=== PATIENT | male | born 1940 | race Caucasian/White ===

== ENCOUNTER 2017-12-02 17:41 | Emergency (ER) | payer OTHER ==
[~2017-12-02] VITALS: Ht 170.2 cm; Wt 66.0 kg
[~2017-12-02 17:41] MED LIST: SYNT25TA PO; TAMS0.4C67 PO
[2017-12-02 17:44] VITALS: BP 195/91; PULSE 102; RESP 16; TEMP 98.8; O2SAT 96
[2017-12-02] MEDS ORDERED: TAMS0.4C4 (17:49)
[2017-12-02] MEDS ORDERED: SULFAMETHOXAZOLE-TRIMETHOPRIM DS 800-160 MG TAB PO ONE (18:00)
[2017-12-02] MEDS ORDERED: CEPHALEXIN MONOHYDRATE 500 MG CAP PO ONE (18:00)
[2017-12-02] MEDS ORDERED: BACT800T5 PO (18:03)
[2017-12-02] MEDS ORDERED: CEPH-460 PO (18:03)
--- NOTE | 2017-12-02 18:04 | PD ---
HPI Chief Complaint: Skin Problem Time Seen by Provider: 17:56 Travel History International Travel<30 days: No Contact w/Intl Traveler<30days: No Traveled to known affect area: No History of Present Illness HPI 77-year-old male presents to the emergency department for evaluation of possible infection to his left dorsal hand. He states he was working out in the yard yesterday and noticed some redness last night. Patient denies any fevers or chills. He has history of prostate problems and takes to prostate medications. He denies any allergies. He denies any loss of range of motion. No exacerbating or alleviating factors. Moderate severity. Patient states his tetanus immunization is up-to-date. PFSH Past Medical History Diminished Hearing: No Genitourinary: Yes (BPH) Thyroid Disease: Yes (HYPOTHYROIDISM) Past Surgical History Abdominal Surgery: Yes (GATRIC ULCER 1994) Social History Alcohol Use: No Tobacco Use: No (QUIT 2007) Substance Use: No Allergies-Medications (Allergen,Severity, Reaction): Coded Allergies: No Known Allergies (Unverified Adverse Reaction, Unknown, 12/02/17) Reported Meds & Prescriptions Reported Meds & Active Scripts Active Reported Tamsulosin (Tamsulosin HCl) 0.4 Mg Cap 0.4 Mg HS Review of Systems Except as stated in HPI: all other systems reviewed are Neg Physical Exam Narrative GENERAL: Well-nourished, well-developed elderly male patient, afebrile. SKIN: Focused skin assessment warm/dry. Patient has erythema to the dorsal aspect of the left fifth finger proximal to the PIP joint. He also erythema to the left lateral dorsal hand. No obvious abscess or drainage. No lymphangitis. HEAD: Normocephalic. Atraumatic. EYES: No scleral icterus. No injection or drainage. NECK: Supple, trachea midline. No JVD or lymphadenopathy. CARDIOVASCULAR: Regular rate and rhythm without murmurs, gallops, or rubs. RESPIRATORY: Breath sounds equal bilaterally. No accessory muscle use. Lungs sounds are clear to auscultation. MUSCULOSKELETAL: No cyanosis, or edema. BACK: Nontender without obvious deformity. No CVA tenderness. Data Data Last Documented VS Vital Signs Date Time Temp Pulse Resp B/P (MAP) Pulse Ox O2 Delivery O2 Flow Rate FiO2 12/02/17 17:44 98.8 102 16 195/91 (125) 96 Orders Orders Sulfamet-Trimeth Ds 800-160 Mg (Bactrim (12/02/17 18:00) Cephalexin (Keflex) (12/02/17 18:00) [facility] Medical Decision Making Medical Screen Exam Complete: Yes Emergency Medical Condition: Yes Medical Record Reviewed: Yes Differential Diagnosis Cellulitis versus abscess versus contact dermatitis Narrative Course 77-year-old male presents to the emergency department for evaluation of possible infection to his left dorsal hand. Physical exam is consistent with cellulitis. No evidence of abscess. Patient will be started on Bactrim and Keflex. He is given his first dose here. He is instructed on proper wound care. The patient was discharged in stable condition with instructions, including return instructions and follow up instructions. Diagnosis Primary Impression: Cellulitis of left hand Referrals: Primary Care Physician 2 days Patient Instructions: Cellulitis (ED), General Instructions Additional Instructions: Take antibiotics as directed until gone. Clean left hand with soap and water and apply [id number] antibiotic ointment twice daily. Follow-up with your primary care physician. Return to the emergency department for any acute worsening of symptoms. Med/Other Pt SpecificInfo: Prescription(s) given Scripts Cephalexin (Keflex) 500 Mg Capsule 500 MG PO Q6H for Infection for 10 Days, #40 CAP 0 Refills Prov: Thu Agarwal 12/02/17 Sulfamethoxazole-Trimethoprim (Bactrim DS) 800-160 Mg Tab 1 TAB PO BID for Infection, #20 TAB 0 Refills Prov: Thu Agarwal 12/02/17 Disposition: 01 DISCHARGE HOME Condition: Stable Thu Agarwal Dec 02, 2017 18:04
== END 2017-12-02 18:14 | disposition home or self-care (01) ==
LOC: PHEFT 17:41 → MERGE 17:41 → PHEFT 18:14
DX: L03.114 Cellulitis of left upper limb (principal); E03.9 Hypothyroidism, unspecified
CPT/HCPCS: 99283

== ENCOUNTER 2017-12-04 08:24 | Inpatient (IN) | payer OTHER, MEDICARE ==
[~2017-12-04] VITALS: Ht 170.2 cm; Wt 68.4 kg
[2017-12-04] VITALS (11 sets, daily range): BP systolic 140–182; BP diastolic 68–95; PULSE 79–106; RESP 16–20; TEMP 96.3–98.8; O2SAT 95–99
[~2017-12-04 08:24] MED LIST changes: +BACT800T5 PO; +CEPH-460 PO; -SYNT25TA PO; +TAMS0.4C4; -TAMS0.4C67 PO
--- NOTE | 2017-12-04 08:55 | PD ---
HPI Chief Complaint: Skin Problem Time Seen by Provider: 08:40 Travel History International Travel<30 days: No Contact w/Intl Traveler<30days: No Traveled to known affect area: No History of Present Illness HPI 77-year-old male here for evaluation of worsening left hand infection. The patient was seen in the emergency department on 12/02/17 and was felt to have cellulitis of the dorsum of his left hand. He was started on Bactrim and Keflex. He states that over the last 2 days the pain and swelling has been worsening. Pain is moderate, constant, worse with movement and palpation. He denies fevers or chills. He is right-hand dominant. PFSH Past Medical History Diminished Hearing: No Genitourinary: Yes (BPH) Thyroid Disease: Yes (HYPOTHYROIDISM) Past Surgical History Abdominal Surgery: Yes (GATRIC ULCER 1994) Social History Alcohol Use: No Tobacco Use: No (QUIT 2007) Substance Use: No Allergies-Medications (Allergen,Severity, Reaction): Coded Allergies: No Known Allergies (Verified Adverse Reaction, Unknown, 12/04/17) Reported Meds & Prescriptions Reported Meds & Active Scripts Active Keflex (Cephalexin) 500 Mg Capsule 500 Mg PO Q6H 10 Days Bactrim DS (Sulfamethoxazole-Trimethoprim) 800-160 Mg Tab 1 Tab PO BID Reported Tamsulosin (Tamsulosin HCl) 0.4 Mg Cap 0.4 Mg HS Review of Systems Except as stated in HPI: all other systems reviewed are Neg Physical Exam Narrative GENERAL: Well-developed, well-nourished, comfortable, no apparent distress. SKIN: Dorsum of left hand with moderate edema with warmth and erythema over the dorsum of the left fifth finger and medial and with open wounds to the dorsum of the left fifth finger that is spontaneously draining purulence and a pustule over the dorsum of the left hand. There is slight red streaking up the proximal /dorsal left hand/wrist. No Kanavel signs. HEAD: Atraumatic. Normocephalic. EYES: Pupils equal and round. No scleral icterus. No injection or drainage. ENT: Mucous membranes pink and moist. NECK: Trachea midline. No JVD. CARDIOVASCULAR: Regular rate and rhythm. Bilateral distal radial pulses are brisk and equal. RESPIRATORY: No accessory muscle use. Clear to auscultation. Breath sounds equal bilaterally. MUSCULOSKELETAL: Skin exam as above. No obvious deformities. No clubbing. No cyanosis. No edema. NEUROLOGICAL: Awake and alert. No obvious cranial nerve deficits. Motor grossly within normal limits. Normal speech. PSYCHIATRIC: Appropriate mood and affect; insight and judgment normal. Data Data Last Documented VS Vital Signs Date Time Temp Pulse Resp B/P (MAP) Pulse Ox O2 Delivery O2 Flow Rate FiO2 12/04/17 10:07 89 16 182/84 (116) 97 Room Air 12/04/17 09:35 97.6 Orders Orders Sepsis Workup Initiated (12/04/17 ) Complete Blood Count With Diff (12/04/17 08:51) Comprehensive Metabolic Panel (12/04/17 08:51) Prothrombin Time / Inr (Pt) (12/04/17 08:51) Act Partial Throm Time (Ptt) (12/04/17 08:51) Lactic Acid Sepsis Protocol (12/04/17 08:51) Blood Culture (12/04/17 08:51) Ecg Monitoring (12/04/17 08:51) Iv Access Insert/Monitor (12/04/17 08:51) Oximetry (12/04/17 08:51) Vancomycin Inj (Vancomycin Inj) (12/04/17 09:00) Us Arm Soft Tissue (12/04/17 ) Hand, Complete (Lgi2umc) (12/04/17 ) Wound Culture And Gram Stain (12/04/17 09:18) Admit To Inpatient (12/04/17 ) Vital Signs (Adult) MU.Q4H (12/04/17 11:01) Activity Oob With Assistance (12/04/17 11:01) Commutator Tester / Telemetry MU.Q8H (12/04/17 11:01) Sodium Chlor 0.45% 1000 Ml Inj (1/2 Ns 1 (12/04/17 11:01) Inpatient Certification (12/04/17 ) Labs Laboratory Tests Test 12/04/17 09:07 White Blood Count 13.8 TH/MM3 Red Blood Count 5.25 MIL/MM3 Hemoglobin 15.6 GM/DL Hematocrit 48.1 % Mean Corpuscular Volume 91.6 FL Mean Corpuscular Hemoglobin 29.8 PG Mean Corpuscular Hemoglobin Concent 32.5 % Red Cell Distribution Width 12.1 % Platelet Count 333 TH/MM3 Mean Platelet Volume 7.0 FL Neutrophils (%) (Auto) 78.6 % Lymphocytes (%) (Auto) 10.3 % Monocytes (%) (Auto) 9.2 % Eosinophils (%) (Auto) 1.2 % Basophils (%) (Auto) 0.7 % Neutrophils # (Auto) 10.8 TH/MM3 Lymphocytes # (Auto) 1.4 TH/MM3 Monocytes # (Auto) 1.3 TH/MM3 Eosinophils # (Auto) 0.2 TH/MM3 Basophils # (Auto) 0.1 TH/MM3 CBC Comment AUTO DIFF Differential Comment AUTO DIFF CONFIRMED Prothrombin Time 10.8 SEC Prothromb Time International Ratio 1.1 RATIO Activated Partial Thromboplast Time 27.3 SEC Blood Urea Nitrogen 22 MG/DL Creatinine 1.30 MG/DL Random Glucose 107 MG/DL Total Protein 7.9 GM/DL Albumin 3.7 GM/DL Calcium Level 8.4 MG/DL Alkaline Phosphatase 93 U/L Aspartate Amino Transf (AST/SGOT) 21 U/L Alanine Aminotransferase (ALT/SGPT) 17 U/L Total Bilirubin 1.9 MG/DL Sodium Level 136 MEQ/L Potassium Level 4.6 MEQ/L Chloride Level 103 MEQ/L Carbon Dioxide Level 25.0 MEQ/L Anion Gap 8 MEQ/L Estimat Glomerular Filtration Rate 54 ML/MIN Lactic Acid Level 1.6 mmol/L MDM Medical Decision Making Medical Screen Exam Complete: Yes Emergency Medical Condition: Yes Differential Diagnosis Cellulitis, extensor tenosynovitis, flexor tenosynovitis, abscess Narrative Course Patient has significant cellulitis to the dorsum of his left hand. There are no Kanavel signs. He has an open wound over the fifth PIP joint on the dorsal aspect of the hand that is spontaneously draining purulence. There is also a pustule over the mid/medial/dorsal left hand that expressed a moderate amount of purulence. Vital signs show heart rate 96, blood pressure 143/68, pulse ox 99% on room air , oral temp of 98.8F. CBC: WBC 13.8, hemoglobin 15.6, hematocrit 40.1, platelets 333, neutrophils 78.6 %. CMP is remarkable for BUN 22, creatinine 1.3, GFR 54, otherwise unremarkable. Lactic acid is 1.6. Left hand x-ray shows soft tissue swelling. Left hand ultrasound: CONCLUSION: Regional soft tissue swelling with no identifiable drainable fluid collection. Patient has been on oral antibiotics as an outpatient for 3 days, however his infection appears to be worsening. He does have 2 areas that are draining purulence on the dorsum of his left hand. I was able to express a moderate amount of purulence from both sites. Given failure of outpatient therapy, the patient will be admitted for IV antibiotics. He was given a dose of 1 g of IV vancomycin here in the emergency department. Patient was made aware of all findings and plan for admission. Case discussed with hospitalist Dr. Bravo who will admit the patient to his service. Diagnosis Primary Impression: Cellulitis of left hand Additional Impression: Abscess of left hand Admitting Information Admitting Physician Requests: Admit David Gracia MD Dec 04, 2017 08:55
[2017-12-04] MEDS ORDERED: VANCOMYCIN INJ 1,000 MG in SODIUM CHLOR 0.9% 250 ML INJ 250 ML IV ONE (09:00)
[2017-12-04 09:32] LABS: AUTOMATED NEUTROPHIL # 10.8 TH/MM3 (1.8-7.7); BASOPHIL # 0.1 TH/MM3 (0-0.2); BASOPHIL % 0.7 % (0.0-2.0); EOSINOPHIL # 0.2 TH/MM3 (0-0.4); EOSINOPHIL % 1.2 % (0.0-4.0); HEMATOCRIT 48.1 % (39.0-51.0); HEMOGLOBIN 15.6 GM/DL (13.0-17.0); LYMPH % 10.3 % (9.0-44.0); LYMPHOCYTE # 1.4 TH/MM3 (1.0-4.8); MEAN CELL VOLUME 91.6 FL (80.0-100.0); MEAN CORPUSCULAR HEMOGLOBIN 29.8 PG (27.0-34.0); MEAN CORPUSCULAR HGB CONC 32.5 % (32.0-36.0); MONO % 9.2 % (0.0-8.0); MONOCYTE # 1.3 TH/MM3 (0-0.9); NEUT % 78.6 % (16.0-70.0); PLATELET COUNT 333 TH/MM3 (150-450); RED BLOOD COUNT 5.25 MIL/MM3 (4.50-5.90); RED CELL DISTRIBUTION WIDTH 12.1 % (11.6-17.2); WHITE BLOOD COUNT 13.8 TH/MM3 (4.0-11.0)
[2017-12-04 09:46] LABS: CALCIUM 8.4 MG/DL (8.5-10.1)
[2017-12-04 09:47] LABS: ALBUMIN 3.7 GM/DL (3.4-5.0); BLOOD UREA NITROGEN 22 MG/DL (7-18); GLUCOSE,RANDOM 107 MG/DL (74-106)
[2017-12-04 09:48] LABS: INTERNATIONAL NORMALIZED RATIO 1.1 RATIO; PROTHROMBIN TIME - PATIENT 10.8 SEC (9.8-11.6)
[2017-12-04 09:50] LABS: ALT (GPT) 17 U/L (12-78); AST (GOT) 21 U/L (15-37); GLOMERULAR FILTRATION RATE 54 ML/MIN (>89)
[2017-12-04 09:51] LABS: TOTAL BILIRUBIN ADULT 1.9 MG/DL (0.2-1.0); TOTAL PROTEIN 7.9 GM/DL (6.4-8.2)
[2017-12-04 09:53] LABS: ALKALINE PHOSPHATASE 93 U/L (45-117)
--- NOTE | 2017-12-04 09:57 | RADRPT ---
EXAM DATE/TIME: 12/04/2017 09:02 [facility] COMPARISON: No previous studies available for comparison. INDICATIONS : Left hand swelling with blisters to the fifth metacarpel MEDICAL HISTORY : None. SURGICAL HISTORY : None. ENCOUNTER: Initial ACUITY: 4 - 6 days PAIN SCORE: 9/10 LOCATION: Left hand FINDINGS: Soft tissue swelling lateral side of the hand without bony destruction or radiopaque foreign body. T here is no gas in the soft tissues. CONCLUSION: Soft tissue swelling, lateral side otherwise negative Aiden Obrien MD FACR on December 04, 2017 at 9:54 Board Certified Radiologist. This report was verified electronically.
[2017-12-04 09:58] LABS: CHLORIDE 103 MEQ/L (98-107); SODIUM (NA) 136 MEQ/L (136-145)
--- NOTE | 2017-12-04 10:51 | RADRPT ---
EXAM DATE/TIME: 12/04/2017 09:22 [facility] COMPARISON: No previous studies available for comparison. INDICATIONS : Left hand and finger swelling. MEDICAL HISTORY : Left hand and finger swelling. SURGICAL HISTORY : Hernia repair. ENCOUNTER: Initial ACUITY: 3 days PAIN SCORE: 10/10 LOCATION: Left hand. AREA EVALUATED: Anterior and posterior left hand. FINDINGS: MASSES: None. FLUID COLLECTIONS: None. OTHER: Regional soft tissue swelling. CONCLUSION: Regional soft tissue swelling with no identifiable drainable fluid collection. Hunter Boyd MD on December 04, 2017 at 10:48 Board Certified Radiologist. This report was verified electronically.
[2017-12-04] MEDS ORDERED: SODIUM CHLOR 0.45% 1000 ML INJ 1,000 ML IV SCH (11:01)
--- NOTE | 2017-12-04 13:28 | HHI.HP ---
[facility] Primary Care Physician Genia Zhang MD Admission Diagnosis left hand cellulitis, left hand abscess, failed outpatient therapy Diagnoses: Chief Complaint: Left hand pain Travel History International Travel<30 Days: No Contact w/Intl Traveler <30 Da: No Traveled to Known Affected Are: No History of Present Illness 77-year-old white male admitting admitted for intractable left hand cellulitis and possible abscess. Patient previously presented to the ER within the last 7 days due to left hand pain and swelling and redness. Was discharged with antibiotics but symptoms persisted and got worse. He came back to the emergency department. The ER physician discussed case with me, was able to express some purulent material out of his left hand over the dorsum aspect of his his left fifth digit as well as over the dorsal aspect of the 4th and 5th metatarsals. They performed US of this area including partially up his forearm due to erythema and saw no drainable abscess. Patient is not sure exactly how the erythema started originally. He does not remember scraping of puncturing his left arm. History reports having a past medical history where he had a left arm fracture and had surgical repair done in [place] 3-1/2 years ago. He reports being an active smoker up until a few years ago and stopped. Says he is quite active in his garden. Review of Systems Except as stated in HPI: all other systems reviewed are Neg Past Family Social History Allergies: Coded Allergies: No Known Allergies (Verified Adverse Reaction, Unknown, 12/04/17) Physical Exam Vital Signs Vital Signs Date Time Temp Pulse Resp B/P (MAP) Pulse Ox O2 Delivery O2 Flow Rate FiO2 12/04/17 11:57 80 16 140/77 (98) 96 12/04/17 11:10 79 16 173/90 (117) 96 Room Air 12/04/17 10:07 89 16 182/84 (116) 97 Room Air 12/04/17 09:40 96 Room Air 12/04/17 09:35 97.6 90 16 163/88 (113) 96 Room Air 12/04/17 08:32 98.8 96 17 143/68 (93) 99 Physical Exam VS: afebrile GENERAL: Elderly white male, lying in bed, no acute distress SKIN: Warm and dry. EYES:No scleral icterus. No injection or drainage. ENT: No nasal bleeding or discharge. Mucous membranes pink and moist. CARDIOVASCULAR: Regular rate and rhythm. no murmurs RESPIRATORY: No accessory muscle use. Clear to auscultation. Breath sounds equal bilaterally. GASTROINTESTINAL: Abdomen ND Extremities: No clubbing, cyanosis, or edema. MUSCULOSKELETAL: Patient has diffuse edema over the dorsal aspect of his metacarpal region with 2 areas of a ruptured head with dried exudate over his the dorsal aspect of his proximal phalynx and over dorsal aspect of his 5th metacarpal. His hand is edematous and cannot fully close the fist combination operator, he has no tenderness upon wrist flexion or extension nor does he have any pain upon complete finger flexion or extension of all 5 fingers. He does have a notable golf ball size tender fluctuant mass on the medial aspect of his elbow joint that has overlying erythema as well. He has scattered erythema throughout his forearm. Olecranon is nontender. NEUROLOGICAL: Awake and alert. No obvious cranial nerve deficits. No facial droop nor slurred speech noted. PSYCHIATRIC: Appropriate mood and affect; insight and judgment normal. Laboratory Laboratory Tests Test 12/04/17 09:07 White Blood Count 13.8 Red Blood Count 5.25 Hemoglobin 15.6 Hematocrit 48.1 Mean Corpuscular Volume 91.6 Mean Corpuscular Hemoglobin 29.8 Mean Corpuscular Hemoglobin Concent 32.5 Red Cell Distribution Width 12.1 Platelet Count 333 Mean Platelet Volume 7.0 Neutrophils (%) (Auto) 78.6 Lymphocytes (%) (Auto) 10.3 Monocytes (%) (Auto) 9.2 Eosinophils (%) (Auto) 1.2 Basophils (%) (Auto) 0.7 Neutrophils # (Auto) 10.8 Lymphocytes # (Auto) 1.4 Monocytes # (Auto) 1.3 Eosinophils # (Auto) 0.2 Basophils # (Auto) 0.1 CBC Comment AUTO DIFF Differential Comment AUTO DIFF CONFIRMED Prothrombin Time 10.8 Prothromb Time International Ratio 1.1 Activated Partial Thromboplast Time 27.3 Blood Urea Nitrogen 22 Creatinine 1.30 Random Glucose 107 Total Protein 7.9 Albumin 3.7 Calcium Level 8.4 Alkaline Phosphatase 93 Aspartate Amino Transf (AST/SGOT) 21 Alanine Aminotransferase (ALT/SGPT) 17 Total Bilirubin 1.9 Sodium Level 136 Potassium Level 4.6 Chloride Level 103 Carbon Dioxide Level 25.0 Anion Gap 8 Estimat Glomerular Filtration Rate 54 Lactic Acid Level 1.6 Date/Time Source Procedure Growth Status 12/04/17 09:07 Blood Peripheral Aerobic Blood Culture Pending Received 12/04/17 09:07 Blood Peripheral Anaerobic Blood Culture Pending Received 12/04/17 10:00 Wound Hand Gram Stain Pending Received 12/04/17 10:00 Wound Hand Wound Culture Pending Received Result Diagram: 12/04/17 0907 12/04/17906 Imaging Last Impressions Upper Extremity Ultrasound 12/04/17 0000 Signed Impressions: Service Date/Time: Monday, December 04, 2017 09:22 - CONCLUSION: Regional soft tissue swelling with no identifiable drainable fluid collection. Hunter Boyd MD Hand X-Ray 12/04/17 0000 Signed Impressions: Service Date/Time: Monday, December 04, 2017 09:02 - CONCLUSION: Soft tissue swelling, lateral side otherwise negative Aiden Obrien MD FACR Caprini VTE Risk Assessment Caprini VTE Risk Assessment: Mod/High Risk (score >= 2) Caprini Risk Assessment Model Point Value = 1 Point Value = 2 Point Value = 3 Point Value = 5 Age 41-60 Minor surgery BMI > 25 kg/m2 Swollen legs Varicose veins or History of unexplained or recurrent spontaneous Oral contraceptives or hormone replacement Sepsis (< 1 month) Serious lung disease, including pneumonia (< 1 month) Abnormal pulmonary function Acute myocardial infarction Congestive heart failure (< 1 month) History of inflammatory bowel disease Medical patient at bed rest Age 61-74 Arthroscopic surgery Major open surgery (> 45 min) Laparoscopic surgery (> 45 min) Malignancy Confined to bed (> 72 hours) Immobilizing plaster cast Central venous access Age >= 75 History of VTE Family history of VTE Factor V Leiden Prothrombin [id number] Lupus anticoagulant Anticardiolipin antibodies Elevated serum homocysteine Heparin-induced thrombocytopenia Other congenital or acquired thrombophilia Stroke (< 1 month) Elective arthroplasty Hip, pelvis, or leg fracture Acute spinal cord injury (< 1 month) Prophylaxis Regimen Total Risk Factor Score Risk Level Prophylaxis Regimen 0-1 Low Early ambulation 2 Moderate Order ONE of the following: *Sequential Compression Device (SCD) *Heparin 5000 units SQ BID 3-4 Higher Order ONE of the following medications: *Heparin 5000 units SQ TID *Enoxaparin/Lovenox 40 mg SQ daily (WT < 150 kg, CrCl > 30 mL/min) *Enoxaparin/Lovenox 30 mg SQ daily (WT < 150 kg, CrCl > 10-29 mL/min) *Enoxaparin/Lovenox 30 mg SQ BID (WT < 150 kg, CrCl > 30 mL/min) AND/OR *Sequential Compression Device (SCD) 5 or more Highest Order ONE of the following medications: *Heparin 5000 units SQ TID (Preferred with Epidurals) *Enoxaparin/Lovenox 40 mg SQ daily (WT < 150 kg, CrCl > 30 mL/min) *Enoxaparin/Lovenox 30 mg SQ daily (WT < 150 kg, CrCl > 10-29 mL/min) *Enoxaparin/Lovenox 30 mg SQ BID (WT < 150 kg, CrCl > 30 mL/min) AND *Sequential Compression Device (SCD) Assessment and Plan Assessment and Plan hand refractory cellulitis - failed outpt abx w/ bactrim and keflex, continue w/ vanc and levaquin possible left elbow abscess - performing another US of this region since the original US covered only the and and forearm. may need surgical consult. MANOHAR - mild IVFs bph - home flomax SCDs for now w/ possible surgical intervention warranted. Physician Certification 2 Midnight Certification Type: Admission for Inpatient Services Order for Inpatient Services The services are ordered in accordance with Medicare regulations or non- Medicare payer requirements, as applicable. In the case of services not specified as inpatient-only, they are appropriately provided as inpatient services in accordance with the 2-midnight benchmark. Estimated LOS (days): 3 3 days is the estimated time the patient will need to remain in the hospital, assuming treatment plan goals are met and no additional complications. Post-Hospital Plan: Not yet determined Miguel Bravo MD Dec 04, 2017 13:28
[2017-12-04] MEDS ORDERED: Vancomycin Consult Pharmacy 1 EA OTHER SCH (14:00)
[2017-12-04] MEDS: SODIUM CHLOR 0.9% 1000 ML INJ 1,000 ML IV SCH (14:49)
[2017-12-04] MEDS: LEVOFLOXACIN 750 MG PREMIX INJ 150 ML IV SCH (14:49)
--- NOTE | 2017-12-04 15:12 | RADRPT ---
EXAM DATE/TIME: 12/05/2017 14:12 [facility] Corrected on: December 07, 2017; Corrected Date [facility] COMPARISON: US ARM LEFT, December 04, 2017, 9:22. INDICATIONS : Palpable lump left inner upper arm. MEDICAL HISTORY : Left hand and finger swelling. SURGICAL HISTORY : Hernia repair. ENCOUNTER: Subsequent ACUITY: 3 days PAIN SCORE: 0/10 LOCATION: Left arm. AREA EVALUATED: Left upper arm, just proximal to elbow. FINDINGS: MASSES: 1.3 x 1.4 x 1.1 cm area in the medial aspect of the left upper arm just above the elbow. There are 3 discrete areas of diminished echogenicity which could represent cystic areas. No detectable vascular flow on Doppler interrogation, however FLUID COLLECTIONS: None. OTHER: Negative. CONCLUSION: 1. 1.4 cm nodular density in the medial aspect of the left upper arm just below the elbow. The lesion contains 3 small hypoechoic areas which could represent cysts. No detectable blood flow on Doppler i nterrogation. Findings are nonspecific but could represent a necrotic lymph node. 2. If clinically warranted, MRI of the left upper arm with without gadolinium could be performed for further characterization. Hunter Boyd MD on December 04, 2017 at 15:05 Board Certified Radiologist. This report was verified electronically.
--- NOTE | 2017-12-04 20:28 | RADRPT ---
EXAM DATE/TIME: 12/04/2017 19:21 [facility] Corrected on: December 07, 2017; Corrected Ordering MD [facility] COMPARISON: No previous studies available for comparison. INDICATIONS : Left arm swelling and reddening and painful. MEDICAL HISTORY : Left hand and finger swelling. SURGICAL HISTORY : orif left elbow ENCOUNTER: Initial ACUITY: 3 days PAIN SCORE: 10/10 LOCATION: Left upper extremity FINDINGS: Multiple view examination of the left elbow demonstrates a wire and pin fixation of the proximal ulna . Probable remote fracture at the medial epicondyle with some nonunion. No acute fracture identified. CONCLUSION: 1. Postoperative changes as above. Lacho Han MD on December 04, 2017 at 20:24 Board Certified Radiologist. This report was verified electronically.
[2017-12-04] MEDS ORDERED: TAMSULOSIN HCL 0.4 MG CAP PO SCH (21:00)
[2017-12-05] VITALS (8 sets, daily range): BP systolic 112–143; BP diastolic 56–96; PULSE 82–101; RESP 15–20; TEMP 98–99.2; O2SAT 94–99
[2017-12-05] MEDS: VANCOMYCIN 1,000 MG/NS 250 ML IV SCH ×4 (04:49→22:29)
[2017-12-05 06:55] LABS: CHLORIDE 104 MEQ/L (98-107); SODIUM (NA) 135 MEQ/L (136-145)
[2017-12-05 07:09] LABS: ALBUMIN 2.9 GM/DL (3.4-5.0); ALKALINE PHOSPHATASE 79 U/L (45-117); ALT (GPT) 14 U/L (12-78); AST (GOT) 14 U/L (15-37); BICARBONATE 25.2 MEQ/L (21.0-32.0); BLOOD UREA NITROGEN 18 MG/DL (7-18); CALCIUM 7.7 MG/DL (8.5-10.1); CREATININE 0.99 MG/DL (0.60-1.30); GLOMERULAR FILTRATION RATE 73 ML/MIN (>89); GLUCOSE,RANDOM 107 MG/DL (74-106); TOTAL BILIRUBIN ADULT 1.4 MG/DL (0.2-1.0); TOTAL PROTEIN 6.6 GM/DL (6.4-8.2)
[2017-12-05] MEDS ORDERED: ALPRAZolam 0.25 MG TAB PO ONE (09:15)
[2017-12-05] MEDS ORDERED: LORazepam 2 MG/ML VIAL IV PUSH ONE (09:15)
[2017-12-05 09:32] LABS: BASOPHIL % 0.3 % (0.0-2.0); EOSINOPHIL % 0.3 % (0.0-4.0); HEMATOCRIT 42.4 % (39.0-51.0); HEMOGLOBIN 14.5 GM/DL (13.0-17.0); LYMPH % 8.6 % (9.0-44.0); LYMPHOCYTE # 1.1 TH/MM3 (1.0-4.8); MEAN CELL VOLUME 90.8 FL (80.0-100.0); MEAN CORPUSCULAR HEMOGLOBIN 31.1 PG (27.0-34.0); MEAN CORPUSCULAR HGB CONC 34.2 % (32.0-36.0); MEAN PLATELET VOLUME 6.9 FL (7.0-11.0); MONO % 6.2 % (0.0-8.0); MONOCYTE # 0.8 TH/MM3 (0-0.9); NEUT % 84.6 % (16.0-70.0); PLATELET COUNT 332 TH/MM3 (150-450); RED BLOOD COUNT 4.67 MIL/MM3 (4.50-5.90); RED CELL DISTRIBUTION WIDTH 12.4 % (11.6-17.2); WHITE BLOOD COUNT 12.9 TH/MM3 (4.0-11.0)
--- NOTE | 2017-12-05 10:44 | HHI.PR ---
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 He could not get any portion of the imaging done no more than 10-15 minutes. Therefore scan was canceled. Patient also reports having the urgency to urinate and apparently had a Baez catheter placed. He doesn't his hand pain is much improved. Objective Vital Signs Date Time Temp Pulse Resp B/P (MAP) Pulse Ox O2 Delivery O2 Flow Rate FiO2 12/05/17 08:37 98.0 101 18 142/72 (95) 94 12/05/17 04:00 98.4 96 20 143/67 (92) 96 12/05/17 00:00 98.6 93 20 135/96 (109) 95 12/04/17 20:00 98.1 106 20 165/79 (107) 95 12/04/17 16:00 96.9 88 16 158/74 (102) 99 12/04/17 15:22 85 12/04/17 14:00 96.3 86 16 158/91 (113) 96 12/04/17 13:32 12/04/17 13:29 90 16 178/95 (122) 96 Room Air 12/04/17 11:57 80 16 140/77 (98) 96 12/04/17 11:10 79 16 173/90 (117) 96 Room Air I/O 12/04/17 12/04/17 12/04/17 12/05/17 12/05/17 12/05/17 07:00 15:00 23:00 07:00 15:00 23:00 Intake Total 498 ml 300 ml 60 ml Output Total 1200 ml Balance 498 ml 300 ml -1140 ml Intake Oral 300 ml 60 ml IV Total 498 ml Output Urine Total 1200 ml # Voids 2 # Bowel Movements 0 Result Diagram: 12/05/17 0900 12/05/17 0603 Objective Remarks Minimally improved edema in hand compared to yesterday, all other findings otherwise unchanged. : diffuse edema over the dorsal aspect of his metacarpal region with 2 areas of a ruptured head with dried exudate over his the dorsal aspect of his proximal phalynx and over dorsal aspect of his 5th metacarpal. His hand is edematous. golf ball size tender fluctuant mass on the medial aspect of his elbow joint that has overlying erythema as well. He has scattered erythema throughout his forearm. Lying in bed, no acute distress A/P Assessment and Plan hand refractory cellulitis - failed outpt abx w/ bactrim and keflex, continue w/ vanc and levaquin - possible left elbow abscess - Given minimal improvement consulting hand surgeon. We will reorder the MRI today with anxiolytics beforehand to cover the elbow, forearm, and hand. Of most concern to me is actually the elbow since the ultrasound is showing a mass whereas the hand is showing soft tissue swelling. MANOHAR -Nearly resolved bph - home flomax SCDs for now w/ possible surgical intervention warranted. Miguel Bravo MD Dec 05, 2017 10:44
[2017-12-05] MEDS ORDERED: GADODIAMIDE PF 287 MG/ML 5 ML VIAL (for RAD MRI) IV PUSH ONE (13:00)
--- NOTE | 2017-12-05 13:25 | RADRPT ---
EXAM DATE/TIME: 12/05/2017 10:55 [facility] COMPARISON: No previous studies available for comparison. INDICATIONS : Abscess. Top of left hand red and swollen. CONTRAST: 12 cc Omniscan (gadodiamide) IV MEDICAL HISTORY : None. SURGICAL HISTORY : Inguinal hernia repair. Left elbow. ENCOUNTER: Initial ACUITY: 3 day PAIN SCORE: 5/10 LOCATION: Left hand TECHNIQUE: Multiplanar, multisequence MRI examination was performed without contrast and after the intravenous a dministration of gadolinium. FINDINGS: BONE/CARTILAGE: Bone marrow signal is homogeneous. Articular cartilage signal is within normal limits. TENDONS: All of the visualized tendons are intact. MISCELLANEOUS: No evidence of joint effusion. There soft tissue swelling across the dorsum of the hand including a s mall open wound overlying the fifth metacarpal bone. I don't see any evidence of osteomyelitis or dano inable abscess POST-CONTRAST: There are no abnormal areas of enhancement on the post-contrast images. CONCLUSION: Impressive soft tissue edema across the dorsum of the wrist including a small open wound overlying th e fifth metacarpal bone. No soft tissue or drainable abscess is noted. Tone Ambrose MD on December 05, 2017 at 13:22 Board Certified Radiologist. This report was verified electronically.
--- NOTE | 2017-12-05 13:27 | RADRPT ---
EXAM DATE/TIME: 12/05/2017 10:55 [facility] COMPARISON: No previous studies available for comparison. INDICATIONS : Abscess. CONTRAST: 12 cc Omniscan (gadodiamide) IV MEDICAL HISTORY : None. SURGICAL HISTORY : Inguinal hernia repair. Left elbow. ENCOUNTER: Initial ACUITY: 3 day PAIN SCORE: 5/10 LOCATION: Left arm TECHNIQUE: Multiplanar multisequence MRI examination of the forearm was performed with and without contrast. FINDINGS: BONE/CARTILAGE: Bone marrow signal is homogeneous. Articular cartilage signal is within normal limits. MUSCLES/TENDONS: All of the visualized muscles and tendons are intact. MISCELLANEOUS: There's impressive soft tissue edema across the ulnar aspect of the forearm. It is confined to the garcia bcutaneous fat. No deep fluid collection or bony edema is identified to suggest deeper infection POST-CONTRAST: There are no abnormal areas of enhancement on the post-contrast images. CONCLUSION: Subcutaneous edema along the ulnar aspect of the forearm. No drainable fluid collection or abscess is identified. Tone Ambrose MD on December 05, 2017 at 13:24 Board Certified Radiologist. This report was verified electronically.
--- NOTE | 2017-12-05 13:30 | RADRPT ---
EXAM DATE/TIME: 12/05/2017 10:55 [facility] COMPARISON: No previous studies available for comparison. INDICATIONS : Abscess. CONTRAST: 12 cc Omniscan (gadodiamide) IV MEDICAL HISTORY : None. SURGICAL HISTORY : Inguinal hernia repair. Left elbow ENCOUNTER: Initial ACUITY: 3 day PAIN SCORE: 5/10 LOCATION: Left elbow TECHNIQUE: Multiplanar, multisequence MRI examination was performed without contrast and after the intravenous a dministration of gadolinium. FINDINGS: BONE/CARTILAGE: Bone marrow signal is homogeneous except for susceptibility artifact overlying the olecranon. Articul ar cartilage signal is within normal limits. TENDONS: All of the visualized tendons are intact. LIGAMENTS: The radial collateral and ulnar collateral ligament complexes are intact. MISCELLANEOUS: No evidence of joint effusion. Ulnar nerve is within normal limits. POST-CONTRAST: There significant edema along the ulnar aspect of the forearm. There is a collection of fluid underne ath the skin measuring 1.6 x 2.1 cm could be a small subcutaneous abscess. CONCLUSION: Significant edema across the elbow particularly medially with some fluid at the level of the jointlin e in the subcutaneous fat could be a small abscess(series 6 image 7 and series 7 image 16). Tone Ambrose MD on December 05, 2017 at 13:26 Board Certified Radiologist. This report was verified electronically.
[2017-12-05] MEDS ORDERED: LIDOCAINE HCL 1% 50 ML VIAL ONE (14:18)
[2017-12-05] MEDS ORDERED: IBUPROFEN 800 MG TAB PO PRN (15:00)
--- NOTE | 2017-12-05 16:23 | MB ---
cc: BETSY FINCH M.D., [facility] DATE OF CONSULTATION: 12/05/2017 REQUESTING PHYSICIAN: Dr. Miguel Bravo REASON FOR CONSULTATION: Abscesses of left hand failed outpatient therapy. HISTORY OF PRESENT ILLNESS The patient is set the patient is a 77-year-old male who noticed on Monday that he had some swelling and pain of his left hand. The patient was seen emergency room or by various emergency room was given antibiotics. The patient came back last evening complaining of continued pain in the emergency room. The record indicates that the ER physician was able to expressed some purulent material out of the hand at dorsal aspect but definitive incision and drainage was not performed. There was some red streaking up the patient's arm and some swelling of the renal aspect just proximal to his elbow. The patients condition has not improved, while on the IV antibiotics, although some swelling has diminished. Pap consultation is requested regarding evaluation and treatment of the abscesses PAST MEDICAL HISTORY: Negative. REVIEW OF SYSTEMS a review of systems is negative as noted above. ALLERGIES The patient has no known food or drug allergies. SOCIAL HISTORY The patient is living in [place]. PHYSICAL EXAMINATION: IN GENERAL: On examination the patient is lying comfortably in bed. VITAL SIGNS: Temperature is 98, pulse 101, respirations 18, blood pressure is 142/72 and pulse oximetry is 94 on room air. HEAD, EYES, EARS, NOSE, AND THROAT: His extraocular muscles are intact. His pupils are equal round and reactive to light. His mouth is clear. NECK: His neck is supple without masses. LUNGS: The lungs are clear. HEART: Heart is regular rate and rhythm. EXAMINATION Upper extremities reveals an abscess on dorsal aspect of his left hand which appears to be relatively superficial in a sense at the skin has thinned out. This abscess blister measures approximately 1.5 cm x 1 cm in greatest dimension. There is a second area of purulence on dorsal aspect of fifth finger in the midportion of the proximal phalanx. The abscesses again pushing through the skin and there is blistering with thinning over the skin, the patient is able to flex and extend the fifth finger. There is no deep fluctuance around either abscess. The redness does extend proximally the patient's white count on admission was 13.8 with absolute number of 10,800. White blood cells per ml. Today, his white count is 4.9 with 11,000 as an absolute number percent is also increased. His blood glucose was 107 this morning. IMPRESSION The patient has two abscesses of his left hand. PLAN Incision and drainage. The patient is made aware of the risks, complications of the procedure which will be performed at bedtime and he is agreeable to that. MD JANEL Beltrán/diamond /2:48 PM /3:43 PM [facility]
[2017-12-05] MEDS: LEVOFLOXACIN 750 MG PREMIX INJ 150 ML IV SCH (16:49)
[2017-12-05] MEDS: SODIUM CHLOR 0.9% 1000 ML INJ 1,000 ML IV SCH (16:49)
--- NOTE | 2017-12-05 16:59 | MB ---
cc: ELIZABETH CUELLAR DATE OF CONSULTATION: 12/05/2017 REASON FOR CONSULTATION: This is a pleasant 77-year-old male who was admitted with a left hand cellulitis and possible abscess. The patient underwent a procedure to drain the abscess, and then after this, woke up with urinary retention. Baez was placed for approximately 900 cc which was blood tinged urine, per report. The patient has a known history of BPH and currently takes Flomax and Proscar at home. He is unsure who his urologist is at this point in time. He notes prior to admission nocturia one to two times with a moderate stream. He denies any urinary tract infections or hematuria in the past. He does state this PSA was elevated but with the medication it had gone down to 3.78. ALLERGIES NO KNOWN DRUG ALLERGIES PAST MEDICAL HISTORY: Medical history is notable for BPH and hypothyroidism. PAST SURGICAL HISTORY: Abdominal surgery for gastric ulcer. SOCIAL HISTORY Denies smoking, quit 2007. Denies drinking or using drugs. FAMILY HISTORY No family history of prostate cancer is noted. MEDICATIONS: For medications please refer to the chart. REVIEW OF SYSTEMS Denies chest pain, shortness of breath, gait disturbances bleeding disorders. Notes nocturia x 1 to 2, moderate stream. Denies gross hematuria. Denies psychiatric problems. Denies hearing loss. Denies headaches. Denies eye pain The remaining review of systems reviewed and are negative. PHYSICAL EXAMINATION: VITAL SIGNS: Vitals today temperature is 98, heart rate 101, respiratory 18, blood pressure 142/72 96% on room air. IN GENERAL: He is well-developed, well-nourished 77-year-old male in no acute distress. HEAD, EYES, EARS, NOSE, AND THROAT: Normocephalic, atraumatic. Pupils equal round regular to light. Extraocular is intact. NECK: The neck is supple. HEART: The heart rate is regular rate and rhythm. LUNGS: Clear. ABDOMEN: Soft, nontender, distended. Baez is in place with some blood at the meatus. Testes are descended, nontender. Prostate 50 grams smooth on exam. No nodules are identified. EXTREMITIES: Show no cyanosis, swelling or edema. NEUROLOGIC: Cranial nerves II through XII intact PSYCHIATRIC: Generalized mood. LABORATORY FINDINGS: White count 12.9, hemoglobin 14.5, hematocrit 42.4, platelet count 332, sodium 135, potassium 3.9, chloride 104, CO2 25.2, BUN of 18, creatinine 0.9, glucose 107. ASSESSMENT: Assessment is a 77-year-old male with acute urinary retention post procedure after I&D of a hand abscess. RECOMMENDATIONS Maintain Baez catheter for now We will double Flomax to 0.8 mg p.o. q.h.s. Recommend follow-up with a void trial on Monday in the office. Thank you for the consult and allowing me to participate in the care of this patient. Elizabeth Mohan /3:47 PM /4:23 PM
--- NOTE | 2017-12-05 18:30 | PD.CONS ---
History of Present Illness Service Infectious disease Consult Requested By Dr Bravo Reason for Consult Left hand abscess/ cellulitis Primary Care Physician Genia Zhang MD Diagnoses: (1) Acute lymphangitis of left upper extremity (2) Abscess of left hand (3) Cellulitis of left hand History of Present Illness 77 / M who does work in his yard a lot - noticed redness and swelling of left hand and so came to ER on 12/02 - sent home on PO Cephalexin and Bactrim but when there was worsening symptoms with lesions going up his forearm he came back. One abscess has been drained and cultures are pending. He says he feels better . Review of Systems Constitutional: DENIES: Fever, Chills Endocrine: DENIES: Polyuria, Polyphagia Eyes: DENIES: Eye inflammation, Eye pain Ears, nose, mouth, throat: DENIES: Nasal discharge, Oral lesions Respiratory: DENIES: Snoring, Wheezing Cardiovascular: DENIES: Syncope, Dyspnea on Exertion, Lower Extremity Edema Gastrointestinal: DENIES: Bloody stools, Constipation, Diarrhea Genitourinary: DENIES: Urinary frequency, Urinary incontinence Musculoskeletal: DENIES: Muscle aches Integumentary: COMPLAINS OF: Abnormal pigmentation, DENIES: Nail changes Hematologic/lymphatic: DENIES: Lymphadenopathy Neurologic: DENIES: Headache, Localized weakness Psychiatric: DENIES: Confusion, Mood changes Past Family Social History Allergies: Coded Allergies: No Known Allergies (Verified Adverse Reaction, Unknown, 12/04/17) Past Medical History BPH Hypothyroidism Gastric ulcer Active Ordered Medications IV Vancomycin and Levofloxacin Family History Non contributory Social History Past h/o smoking] Retired No recent travel Physical Exam Vital Signs Vital Signs Date Time Temp Pulse Resp B/P (MAP) Pulse Ox O2 Delivery O2 Flow Rate FiO2 12/05/17 08:37 98.0 101 18 142/72 (95) 94 12/05/17 07:30 101 12/05/17 04:00 98.4 96 20 143/67 (92) 96 12/05/17 00:00 98.6 93 20 135/96 (109) 95 12/04/17 20:00 98.1 106 20 165/79 (107) 95 Physical Exam GENERAL: This is a elderly pleasant patient, in no apparent distress. SKIN:Abscess and cellulitis of left hand with some ? nodular lymphangitis on left fore arm HEAD: Atraumatic. Normocephalic. No temporal or scalp tenderness. EYES: Pupils equal round and reactive. Extraocular motions intact. No scleral icterus. No injection or drainage. ENT: Nose without bleeding, purulent drainage or septal hematoma. Throat without erythema, tonsillar hypertrophy or exudate. Uvula midline. Airway patent. NECK: Trachea midline. No JVD or lymphadenopathy. Supple, nontender, no meningeal signs. CARDIOVASCULAR: Regular rate and rhythm without murmurs, gallops, or rubs. RESPIRATORY: Clear to auscultation. Breath sounds equal bilaterally. No wheezes , rales, or rhonchi. GASTROINTESTINAL: Abdomen soft, non-tender, nondistended. No hepato-splenomegaly , or palpable masses. No guarding. MUSCULOSKELETAL: Extremities without clubbing, cyanosis, or edema. No joint tenderness, effusion, or edema noted. No calf tenderness. Negative Homans sign bilaterally. NEUROLOGICAL: Awake and alert. Cranial nerves II through XII intact. Motor and sensory grossly within normal limits. Five out of 5 muscle strength in all muscle groups. Normal speech. Laboratory Laboratory Tests Test 12/05/17 06:03 12/05/17 09:00 Blood Urea Nitrogen 18 Creatinine 0.99 Random Glucose 107 Total Protein 6.6 Albumin 2.9 Calcium Level 7.7 Alkaline Phosphatase 79 Aspartate Amino Transf (AST/SGOT) 14 Alanine Aminotransferase (ALT/SGPT) 14 Total Bilirubin 1.4 Sodium Level 135 Potassium Level 3.9 Chloride Level 104 Carbon Dioxide Level 25.2 Anion Gap 6 Estimat Glomerular Filtration Rate 73 White Blood Count 12.9 Red Blood Count 4.67 Hemoglobin 14.5 Hematocrit 42.4 Mean Corpuscular Volume 90.8 Mean Corpuscular Hemoglobin 31.1 Mean Corpuscular Hemoglobin Concent 34.2 Red Cell Distribution Width 12.4 Platelet Count 332 Mean Platelet Volume 6.9 Neutrophils (%) (Auto) 84.6 Lymphocytes (%) (Auto) 8.6 Monocytes (%) (Auto) 6.2 Eosinophils (%) (Auto) 0.3 Basophils (%) (Auto) 0.3 Neutrophils # (Auto) 11.0 Lymphocytes # (Auto) 1.1 Monocytes # (Auto) 0.8 Eosinophils # (Auto) 0.0 Basophils # (Auto) 0.0 CBC Comment DIFF FINAL Differential Comment Date/Time Source Procedure Growth Status 12/04/17 09:07 Blood Peripheral Aerobic Blood Culture - Preliminary NO GROWTH IN 1 DAY Resulted 12/04/17 09:07 Blood Peripheral Anaerobic Blood Culture - Preliminary NO GROWTH IN 1 DAY Resulted 12/05/17 14:40 Abscess Hand Gram Stain Pending Received 12/05/17 14:40 Abscess Hand Wound Culture Pending Received Result Diagram: 12/05/17 0900 12/05/17 0603 Assessment and Plan Problem List: (1) Abscess of left hand ICD Codes: L02.512 - Cutaneous abscess of left hand Status: Acute Plan: Follow cultures Patient with some nodular lymphangitis so will stop Levofloxacin Start Unasyn 3 g IV q6hrs Continue IV Vancomycin for now (2) Cellulitis of left hand ICD Codes: L03.114 - Cellulitis of left upper limb Status: Acute (3) Acute lymphangitis of left upper extremity ICD Codes: L03.124 - Acute lymphangitis of left upper limb Aniyah Thornton MD Dec 05, 2017 18:30
[2017-12-05] MEDS: AMPICILLIN-SULBACTAM INJ 3 GM in SODIUM CHLORIDE 0.9% INJ 100 ML IV SCH (20:55)
[2017-12-05] MEDS ORDERED: TAMSULOSIN HCL 0.4 MG CAP PO SCH (21:00)
--- NOTE | 2017-12-05 21:25 | MP ---
cc: BETSY FINCH MD DATE OF SURGERY 12/05/17 PREOPERATIVE DIAGNOSIS Abscess times two to the dorsal aspect of left hand and fifth finger. POSTOPERATIVE DIAGNOSIS Abscess times two to the dorsal aspect of left hand and fifth finger. PROCEDURE 1. Incision and drainage of abscess dorsal aspect ulnar side of left hand. 2. Incision and drainage of abscess dorsal aspect of left fifth finger over the proximal phalanx. 3. Excisional debridement of skin and subcutaneous tissue of the hand abscess. 4. Excisional debridement of skin of the finger abscess. ANESTHESIA Local SURGEON Dr. Betsy Finch MD INDICATIONS A 77-year-old male with two abscesses for drainage. FINDINGS At the completion of the procedure, each abscess was drained. The one on the dorsal aspect of his hand did go deep into the soft tissue. The one over the fifth finger was more superficial and did not penetrate into the deep tissues. At the completion of the procedure, both abscesses were adequately drained with no purulence and the effluent which was clear. Operative time was approximately 30 minutes. PROCEDURE The patient was in a supine position in his bed. His left hand was prepped with Betadine and draped in usual sterile fashion. Lidocaine 1% plain was injected as a field block and nerve block proximally at the area of the wrist of the ulnar nerve and then some additional blocking was done locally around the abscess. Once the anesthetic had taken effect, a sterile scissor was used to open up the hand abscess cavity which was then debrided of skin and subcutaneous tissue. It was washed clean and there was a small opening, approximately of 4 mm in diameter, which went deep. This was gently probed and flushed out and the loculations within it were drained. Once the effluent was clear, attention was turned to the fifth finger where the superficial skin was removed and scrubbed off. There was no deep abscess noted. Some manipulation was done in order to express anymore purulence which was none. Both areas were copiously irrigated with saline and dressed with povidone-iodine solution, non adherent dressing and Jaylen. The patient was then given back to the care of the staff on the floor. The large abscess of the dorsal aspect of his hand was cultured. The patient did tolerate the procedure well. MD JANEL Beltrán/ /2:52 PM /8:57 PM MTDD
[2017-12-05] MEDS: POVIDONE IODINE 10% SOLN 118 ML BOTTLE OTHER SCH (21:28)
[2017-12-05] MEDS: POVIDONE IODINE 10% OINT 30 GM TUBE TOPICAL SCH (22:27)
[2017-12-06] VITALS: BP 124/60; PULSE 80; RESP 20; TEMP 98.1; O2SAT 96
[2017-12-06] MEDS: AMPICILLIN-SULBACTAM INJ 3 GM in SODIUM CHLORIDE 0.9% INJ 100 ML IV SCH ×2 (02:25→08:16)
[2017-12-06 04:00] VITALS: BP 135/62; PULSE 78; RESP 20; TEMP 97.7; O2SAT 93
[2017-12-06 07:01] LABS: AUTOMATED NEUTROPHIL # 5.7 TH/MM3 (1.8-7.7); BASOPHIL % 0.4 % (0.0-2.0); EOSINOPHIL # 0.3 TH/MM3 (0-0.4); EOSINOPHIL % 3.1 % (0.0-4.0); HEMATOCRIT 41.3 % (39.0-51.0); HEMOGLOBIN 14.1 GM/DL (13.0-17.0); LYMPH % 14.7 % (9.0-44.0); LYMPHOCYTE # 1.2 TH/MM3 (1.0-4.8); MEAN CELL VOLUME 90.8 FL (80.0-100.0); MEAN CORPUSCULAR HGB CONC 34.1 % (32.0-36.0); MEAN PLATELET VOLUME 6.9 FL (7.0-11.0); MONO % 11.3 % (0.0-8.0); MONOCYTE # 0.9 TH/MM3 (0-0.9); NEUT % 70.5 % (16.0-70.0); PLATELET COUNT 329 TH/MM3 (150-450); RED BLOOD COUNT 4.54 MIL/MM3 (4.50-5.90); RED CELL DISTRIBUTION WIDTH 12.3 % (11.6-17.2); WHITE BLOOD COUNT 8.1 TH/MM3 (4.0-11.0)
[2017-12-06 07:50] VITALS: BP 123/58; PULSE 84; RESP 20; TEMP 97.1; O2SAT 94
[2017-12-06 08:20] VITALS: PULSE 87
[2017-12-06] MEDS: POVIDONE IODINE 10% SOLN 118 ML BOTTLE OTHER SCH (09:00)
--- NOTE | 2017-12-06 09:09 | HHI.PR ---
Subjective Patient symptoms today Pt seen and examined. Feels well. Urine clear. Objective Vital Signs Vital Signs Date Time Temp Pulse Resp B/P (MAP) Pulse Ox O2 Delivery O2 Flow Rate FiO2 12/06/17 04:00 97.7 78 20 135/62 (86) 93 12/06/17 00:00 98.1 80 20 124/60 (81) 96 12/05/17 20:07 82 12/05/17 20:00 99.2 86 20 126/58 (80) 95 12/05/17 18:38 98.2 95 15 112/56 (74) 99 12/05/17 15:00 99 Intake & Output 12/06/17 12/06/17 07:00 19:00 Intake Total 2686 ml Output Total 700 ml Balance 1986 ml Intake Oral 480 ml IV Total 2206 ml Output Urine Total 700 ml Result Diagram: 12/06/17 0615 12/05/17 0603 Objective Remarks Abd:soft,nt,nd Munoz with clear urine Medications and IVs Current Medications Medications (Trade) Dose Ordered Sig/Yoselin Route Start Time Stop Time Status Last Admin Sodium Chloride 1,000 ml @ 42 mls/hr [id number] IV 12/04/17 14:00 12/05/17 16:49 Pharmacy Profile Note 0 ml @ 0 mls/hr UNSCH OTHER 12/04/17 14:00 Vancomycin HCl 1000 mg/Sodium Chloride 250 ml @ 250 mls/hr Q18H IV 12/05/17 04:00 12/05/17 22:29 Miscellaneous Information SPECIFIC LAB TO BE NIKO... ONCE ONCE .XX 12/06/17 15:45 12/06/17 15:46 (Motrin) 800 mg Q8H PRN PO 12/05/17 15:00 12/05/17 16:50 (Betadine 10% Top Soln) 1 applic BID OTHER 12/05/17 21:00 12/05/17 21:28 (Betadine 10% Oint) 1 applic BID TOPICAL 12/05/17 21:00 12/05/17 22:27 (Flomax) 0.8 mg HS PO 12/05/17 21:00 12/05/17 20:57 Ampicillin Sodium/ Sulbactam Sodium 3 gm/Sodium Chloride 100 ml @ 200 mls/hr Q6H IV 12/05/17 20:00 12/06/17 08:16 Assessment and Plan Assessment and Plan 77 y.o male with AUR with possible traumatic munoz Munoz to leg bag F/U on Monday in office fo void trial. Send pt home on Flomax 0.8 mg QHS please Be Brooks DO Dec 06, 2017 09:09
--- NOTE | 2017-12-06 09:10 | HHI.PR ---
Subjective Remarks Patient seen today in follow-up for left arm/hand cellulitis, lymphangitis. Patient has had a remarkable improvement of his condition. All erythema has almost completely resolved. Has significantly rescinded from the previously marked line. Patient states that he is feeling much better and would like to go home. Vital signs remained stable, patient remains afebrile Objective Vitals Vital Signs Date Time Temp Pulse Resp B/P (MAP) Pulse Ox O2 Delivery O2 Flow Rate FiO2 12/06/17 04:00 97.7 78 20 135/62 (86) 93 12/06/17 00:00 98.1 80 20 124/60 (81) 96 12/05/17 20:07 82 12/05/17 20:00 99.2 86 20 126/58 (80) 95 12/05/17 18:38 98.2 95 15 112/56 (74) 99 12/05/17 15:00 99 I/O 12/05/17 12/05/17 12/05/17 12/06/17 12/06/17 12/06/17 07:00 15:00 23:00 07:00 15:00 23:00 Intake Total 60 ml 1050 ml 2586 ml Output Total 1200 ml 700 ml Balance -1140 ml 1050 ml 1886 ml Intake Oral 60 ml 800 ml 480 ml IV Total 250 ml 2106 ml Output Urine Total 1200 ml 700 ml # Bowel Movements 0 Result Diagram: 12/06/17 0615 12/05/17 0603 Objective Remarks GENERAL: Well-developed, well-nourished, in no acute distress. alert and orientated HEENT: Head is normocephalic without any lesions or masses noted. Facial features are symmetric. Eyes: Extraocular muscles are intact. Conjunctivae were clear. NECK: Supple without any masses. Trachea midline no deviation. No JVD, CARDIAC: Regular rhythm, regular rate. S1/S2 are heard. No murmurs gallops or rubs. LUNGS: Clear to auscultation bilaterally. No wheeze, rhonchi or rales. No use of accessory muscles on inspiration or expiration. ABDOMEN: Soft, nontender. Nondistended. Bowel sounds heard in all 4 quadrants. No organomegaly or masses. Negative rebound, negative guarding EXTREMITIES: No edema, pulses are equal bilaterally. No cyanosis or clubbing NEUROLOGY: Mood and affect appear appropriate. Cranial nerves II through XII grossly intact. Moving all extremities, speech is clear LEFT UPPER EXTREMITY. Cellulitis has significantly improved. There is some mild soft tissue swelling within the marked areas. However erythema is almost completely resolved. There is still some epitrochlear lymph nodes present. Bandage is noted on the hand from bedside incision and drainage. Urinary Catheter: No Vascular Central Line Catheter: No A/P Assessment and Plan Left hand/arm refractory cellulitis with lymphangitis, significantly improved Patient failed outpatient management with Bactrim and Keflex. Patient continued on vancomycin, Unasyn Hand specialist was consulted who did perform bedside incision and drainage Infectious disease evaluated patient and recommended antibiotics, discussed with infectious disease who recommended continuation of Bactrim in addition of amoxicillin upon discharge Significant radiological studies with ultrasounds, x-rays, MRIs. Which does show significant edema with some possible fluid/abscess noted in left elbow. Wrist does have impressive soft tissue edema without any drainable abscess Acute urinary retention status post procedure with history of benign prostatic Urgency Urology consulted who recommended maintaining Baez Increasing Flomax to 0.8 mg daily Recommend follow-up with voiding trial on Monday in his office Azotemia, improved Improved with IV fluids Monitor renal function DVT prevention sequential compression devices Discharge Planning Discharge home in stable condition Activity: Ad mikel. Diet: Healthy heart diet Medications per medication reconciliation Follow-up primary medical doctor in one week, urologist on Monday Wilmer Smith Dec 06, 2017 09:10
[2017-12-06] MEDS: POVIDONE IODINE 10% OINT 30 GM TUBE TOPICAL SCH (09:58)
[2017-12-06] MEDS ORDERED: AMOX875T PO (10:00)
--- NOTE | 2017-12-06 10:00 | HHI.DCPOC ---
Discharge Care Plan Diagnosis: (1) Cellulitis of left hand (2) Abscess of left hand (3) Acute lymphangitis of left upper extremity Goals to Promote Your Health * To prevent worsening of your condition and complications * To maintain your health at the optimal level Directions to Meet Your Goals Take your medications as prescribed Follow your dietary instruction Follow activity as directed Keep your appointments as scheduled Take your immunizations and boosters as scheduled If your symptoms worsen call your PCP, if no PCP go to Urgent Care Center or Emergency Room Smoking is Dangerous to Your Health. Avoid second hand smoke Call the 24-hour hour crisis hotline for domestic abuse at Wilmer Smith Dec 06, 2017 10:00
[2017-12-06] MEDS ORDERED: PHARMACY ORDERED LAB ONE (15:45)
== END 2017-12-06 11:11 | disposition home or self-care (01) | DRG 603 ==
LOC: PHED 08:24 → PHEDA 11:03 → PH3B 13:37
PROVIDERS: ADMIT Hospitalist; ATTEND Hospitalist
PROC: 0T9B70Z Drainage of Bladder with Drainage Device, Via Natural or Artificial Opening (ICD-10-PCS; 2017-12-04)
PROC: 0J9K3ZZ Drainage of Left Hand Subcutaneous Tissue and Fascia, Percutaneous Approach (ICD-10-PCS; principal; 2017-12-05)
PROC: 0JDK3ZZ Extraction of Left Hand Subcutaneous Tissue and Fascia, Percutaneous Approach (ICD-10-PCS; 2017-12-05)
PROC: 0H9GXZZ Drainage of Left Hand Skin, External Approach (ICD-10-PCS; 2017-12-05)
DX: L02.512 Cutaneous abscess of left hand (principal); N17.9 Acute kidney failure, unspecified; L03.114 Cellulitis of left upper limb; E03.9 Hypothyroidism, unspecified; N40.1 Benign prostatic hyperplasia with lower urinary tract symptoms; F40.240 Claustrophobia; R60.9 Edema, unspecified; R33.8 Other retention of urine; Z87.891 Personal history of nicotine dependence; Z87.11 Personal history of peptic ulcer disease
CPT/HCPCS: 73080; 73130; 73220; 73223; 76882; 80053; 83605; 85025; 85610; 85730; 86403; 87040; 87070; 87118; 87205; 96365; 99283; A9579; J0295; J1956; J2060; J3370; J7030; J7050